=== PATIENT | male | born 1940 | race Caucasian/White ===

== ENCOUNTER 2017-06-04 19:27 | Emergency (ER) | payer OTHER ==
[~2017-06-04] VITALS: Ht 182.9 cm; Wt 71.6 kg
[~2017-06-04 19:27] MED LIST: ASPI81TA11 PO; ATOR1TAB18 PO; BRIL90TA PO; CENTTAB PO; CHOL1CHW5 CHEW; CIPR-9 PO; CLAR10CA3 PO; FIBE500T PO; FISH120014 PO; FOLI400T PO; GARL500C2 PO; ISOS30TA3 PO; METO25TA3 PO; NIAC500T18 PO; OMEP20TA PO; SYMB160A INH; TAMS5CAP PO; VENTAER INH
[2017-06-04 19:34] VITALS: BP 120/71; PULSE 76; RESP 18; TEMP 99.6; O2SAT 96
--- NOTE | 2017-06-04 19:54 | PD ---
HPI Chief Complaint: Fever Time Seen by Provider: 19:39 Travel History International Travel<30 days: No Contact w/Intl Traveler<30days: No Traveled to known affect area: No History of Present Illness HPI Patient is a pleasant 77 -year-old male with history of CAD, htn, hyperlipidemia , GERD, presents to emergency room with complaints of fever. Patient reports that he had a low grade temperature of 99 degrees this morning, reports that he had 3 bouts of diarrhea today. Reports that around 3:30pm, he developed a temperature of 101 degrees. patient reports that he did take Tylenol that time. Patient reports that he has been feeling well since then. Patient denies any cough or congestion, patient denies any chest pain or shortness of breath. Patient denies any abdominal pain, denies any dysuria, urinary urgency or frequency. Patient did report having back pain earlier today, he has complete resolution of symptoms at this time. Patient reports that he came to the emergency room as his doctor told him that if he ever develops a fever, he would need to go to the emergency room for evaluation. Patient with absolutely no complaints at this time. PFSH Past Medical History Hx Anticoagulant Therapy: Yes Anxiety: No Depression: No Cardiovascular Problems: Yes High Cholesterol: Yes Coronary Artery Disease: Yes Diminished Hearing: No GERD: Yes Hypertension: Yes Psychiatric: No Respiratory: Yes Immunizations Current: Yes Past Surgical History Abdominal Surgery: Yes (hernia) Cardiac Surgery: Yes (cabg x 4 1980s) Coronary Artery Bypass Graft: Yes (1986) Coronary Stent: Yes (X 1 08/2016) Social History Alcohol Use: Yes (occ) Tobacco Use: No (FORMER) Substance Use: No Allergies-Medications (Allergen,Severity, Reaction): Coded Allergies: No Known Allergies (Verified , 06/04/17) Reported Meds & Prescriptions Reported Meds & Active Scripts Active Flomax (Tamsulosin HCl) 0.4 Mg Cap 0.4 Mg PO DAILY Brilinta (Ticagrelor) 90 Mg Tab 90 Mg PO BID Metoprolol Tartrate 25 Mg Tab 25 Mg PO Q12HR Isosorbide Mononitrate ER (Isosorbide Mononitrate) 30 Mg Leon 30 Mg PO DAILY@07 Reported Ventolin Hfa 18 GM Inh (Albuterol Sulfate) 90 Mcg/Act Aer 1 Puff INH Q4H PRN Centrum Silver (Multiple Vitamins W/ Minerals) 1 Tab 1 Tab PO DAILY Fish Oil ([place]-3 Fatty Acids) 1,200 Mg Cap 1 Tab PO DAILY Garlic Oil 500 (Garlic) 500 Mg Cap 2 Tab PO DAILY Vitamin D3 (Cholecalciferol) 2,000 Unit Chew 2,000 Units CHEW DAILY Folic Acid 400 Mcg Tab 400 Mcg PO DAILY Fiber Therapy (Methylcellulose) 500 Mg Tab 2 Tab PO DAILY PRN Omeprazole 20 Mg Tab 20 Mg PO DAILY Atorvastatin (Atorvastatin Calcium) 80 Mg Tab 80 Mg PO HS Claritin (Loratadine) 10 Mg Cap 10 Mg PO DAILY Niacin (Niacinamide) 500 Mg Tab 1 Tab PO HS Aspirin EC (Aspirin) 81 Mg Tabdr 81 Mg PO DAILY Review of Systems General / Constitutional: Positive: Fever, No: Chills Eyes: No: Visual changes HENT: No: Headaches Cardiovascular: No: Chest Pain or Discomfort, Palpitations, Irregular Rhythm, Tachycardia Respiratory: No: Cough, Shortness of Breath, Wheezing Gastrointestinal: No: Nausea, Vomiting, Diarrhea, Abdominal Pain Genitourinary: No: Dysuria Musculoskeletal: No: Pain Skin: No Rash Neurologic: No: Weakness, Dizziness, Tremor, Headache Psychiatric: No: Depression Endocrine: No: Polydipsia Hematologic/Lymphatic: No: Easy Bruising Physical Exam Narrative GENERAL: NAD, Nontoxic SKIN: Focused skin assessment warm/dry. HEAD: Atraumatic. Normocephalic. EYES: Pupils equal and round. No scleral icterus. No injection or drainage. ENT: No nasal bleeding or discharge. Mucous membranes pink and moist. NECK: Trachea midline. No JVD. CARDIOVASCULAR: Regular rate and rhythm. No murmur appreciated. RESPIRATORY: No accessory muscle use. Clear to auscultation. Breath sounds equal bilaterally. GASTROINTESTINAL: Abdomen soft, non-tender, nondistended. Hepatic and splenic margins not palpable. MUSCULOSKELETAL: No obvious deformities. No clubbing. No cyanosis. No edema. No flank tenderness NEUROLOGICAL: Awake and alert. No obvious cranial nerve deficits. Motor grossly within normal limits. Normal speech. PSYCHIATRIC: Appropriate mood and affect; insight and judgment normal. Data Data Last Documented VS Vital Signs Date Time Temp Pulse Resp B/P (MAP) Pulse Ox O2 Delivery O2 Flow Rate FiO2 06/04/17 19:51 Room Air 06/04/17 19:34 99.6 76 18 120/71 (87) 96 Orders Orders Complete Blood Count With Diff (06/04/17 19:47) Comprehensive Metabolic Panel (06/04/17 19:47) Ecg Monitoring (06/04/17 19:47) Iv Access Insert/Monitor (06/04/17 19:47) Oximetry (06/04/17 19:47) Sodium Chloride 0.9% Flush (Ns Flush) (06/04/17 20:00) Urinalysis - C+S If Indicated (06/04/17 19:47) Sodium Chlor 0.9% 1000 Ml Inj (Ns 1000 M (06/04/17 20:30) Labs Laboratory Tests Test 06/04/17 20:20 06/04/17 20:30 White Blood Count 10.4 TH/MM3 Red Blood Count 3.89 MIL/MM3 Hemoglobin 12.1 GM/DL Hematocrit 35.9 % Mean Corpuscular Volume 92.2 FL Mean Corpuscular Hemoglobin 31.0 PG Mean Corpuscular Hemoglobin Concent 33.7 % Red Cell Distribution Width 14.1 % Platelet Count 226 TH/MM3 Mean Platelet Volume 7.1 FL Neutrophils (%) (Auto) 86.7 % Lymphocytes (%) (Auto) 5.2 % Monocytes (%) (Auto) 6.5 % Eosinophils (%) (Auto) 0.4 % Basophils (%) (Auto) 1.2 % Neutrophils # (Auto) 9.1 TH/MM3 Lymphocytes # (Auto) 0.5 TH/MM3 Monocytes # (Auto) 0.7 TH/MM3 Eosinophils # (Auto) 0.0 TH/MM3 Basophils # (Auto) 0.1 TH/MM3 CBC Comment DIFF FINAL Differential Comment Blood Urea Nitrogen 13 MG/DL Creatinine 0.99 MG/DL Random Glucose 101 MG/DL Total Protein 7.4 GM/DL Albumin 3.7 GM/DL Calcium Level 8.9 MG/DL Alkaline Phosphatase 65 U/L Aspartate Amino Transf (AST/SGOT) 26 U/L Alanine Aminotransferase (ALT/SGPT) 27 U/L Total Bilirubin 0.7 MG/DL Sodium Level 136 MEQ/L Potassium Level 3.9 MEQ/L Chloride Level 103 MEQ/L Carbon Dioxide Level 26.0 MEQ/L Anion Gap 7 MEQ/L Estimat Glomerular Filtration Rate 73 ML/MIN Urine Color YELLOW Urine Turbidity CLEAR Urine pH 5.5 Urine Specific [place] 1.031 Urine Protein TRACE mg/dL Urine Glucose (UA) NEG mg/dL Urine Ketones TRACE mg/dL Urine Occult Blood MOD Urine Nitrite NEG Urine Bilirubin NEG Urine Leukocyte Esterase NEG Urine RBC 4-9 /hpf Urine WBC 0-2 /hpf Urine Squamous Epithelial Cells 0-5 /hpf Microscopic Urinalysis Comment CULT NOT INDICATED MDM Medical Decision Making Medical Screen Exam Complete: Yes Emergency Medical Condition: Yes Medical Record Reviewed: Yes Interpretation(s) Vital Signs Date Time Temp Pulse Resp B/P (MAP) Pulse Ox O2 Delivery O2 Flow Rate FiO2 06/04/17 19:34 99.6 76 18 120/71 (87) 96 Differential Diagnosis Differential includes viral infection, UTI, electrolyte abnormality Narrative Course Patient is a 77-year-old male who presents to emergency room for evaluation of fever. Reports that he had one episode of fever around 3:30 PM this afternoon, reports that he did take Tylenol and has resolution of symptoms. Patient reports that he has no cough or congestion, no chest pain or shortness of breath. Patient with no abdominal pain, nausea or vomiting. Patient denies any complaints at this time. Reports that he came to the emergency room for evaluation as he was told to come to the emergency room if he ever developed a fever by his doctor. Vital Signs Date Time Temp Pulse Resp B/P (MAP) Pulse Ox O2 Delivery O2 Flow Rate FiO2 06/04/17 19:34 99.6 76 18 120/71 (87) 96 Patient's vital signs are stable this time, patient is afebrile with a temperature of 99.6. Patient with no complaints at this time, will obtain x- ray of chest, will obtain basic blood work, and will monitor patient CBC & BMP Diagram 06/04/17 20:20 Total Protein 7.4, Albumin 3.7, Calcium Level 8.9, Alkaline Phosphatase 65, Aspartate Amino Transf (AST/SGOT) 26, Alanine Aminotransferase (ALT/SGPT) 27, Total Bilirubin 0.7 UA: trace ketones, mod blood, neg leuk esterase, negative nitrites, 0-2 white blood cells Patient asymptomatic while in the emergency room, patient with absolutely no complaints. Patient with fever of unknown etiology while at home. Instructed patient to follow up with his primary care doctor in 48-72 hours. If he has return of symptoms, he is return to emergency room. Signs and symptoms of when to return to the emergency room was reviewed with patient in detail. Diagnosis Primary Impression: Fever Qualified Codes: R50.9 - Fever, unspecified Additional Impression: Anemia Qualified Codes: D64.9 - Anemia, unspecified Patient Instructions: General Instructions Additional Instructions: Please follow up with your primary care doctor in 48-72 hours Return to ER if symptoms return Return to ER as needed Disposition: 01 DISCHARGE HOME Condition: Stable Domitila Carpenter DO Jun 04, 2017 19:54
[2017-06-04] MEDS ORDERED: SODIUM CHLORIDE 0.9% FLUSH 10 ML FLUSH IVF PRN (20:00)
[2017-06-04 20:26] LABS: AUTOMATED NEUTROPHIL # 9.1 TH/MM3 (1.8-7.7); BASOPHIL # 0.1 TH/MM3 (0-0.2); BASOPHIL % 1.2 % (0.0-2.0); EOSINOPHIL % 0.4 % (0.0-4.0); HEMATOCRIT 35.9 % (39.0-51.0); LYMPH % 5.2 % (9.0-44.0); LYMPHOCYTE # 0.5 TH/MM3 (1.0-4.8); MEAN CELL VOLUME 92.2 FL (80.0-100.0); MEAN CORPUSCULAR HGB CONC 33.7 % (32.0-36.0); MONO % 6.5 % (0.0-8.0); NEUT % 86.7 % (16.0-70.0); PLATELET COUNT 226 TH/MM3 (150-450); RED BLOOD COUNT 3.89 MIL/MM3 (4.50-5.90); RED CELL DISTRIBUTION WIDTH 14.1 % (11.6-17.2); WHITE BLOOD COUNT 10.4 TH/MM3 (4.0-11.0)
[2017-06-04 20:27] LABS: HEMO FLAGS DIFF FINAL
[2017-06-04] MEDS ORDERED: SODIUM CHLOR 0.9% 1000 ML INJ 1,000 ML IV ONE (20:30)
[2017-06-04 20:32] LABS: CHLORIDE 103 MEQ/L (98-107); POTASSIUM 3.9 MEQ/L (3.5-5.1); SODIUM (NA) 136 MEQ/L (136-145)
[2017-06-04 20:36] LABS: ANION GAP 7 MEQ/L (5-15); BLOOD UREA NITROGEN 13 MG/DL (7-18)
[2017-06-04 20:39] LABS: ALT (GPT) 27 U/L (12-78); AST (GOT) 26 U/L (15-37); GLOMERULAR FILTRATION RATE 73 ML/MIN (>89)
[2017-06-04 20:41] LABS: TOTAL BILIRUBIN ADULT 0.7 MG/DL (0.2-1.0)
[2017-06-04 20:42] LABS: ALKALINE PHOSPHATASE 65 U/L (45-117)
[2017-06-04 20:43] LABS: BLOOD, URINE MOD (NEG); GLUCOSE,URINE NEG (NEG); KETONE, URINE TRACE mg/dL (NEG); NITRITE,URINE NEG (NEG); PH, URINE 5.5 (5.0-8.5)
[2017-06-04 20:48] LABS: URINE COLOR YELLOW (YELLW/STRAW)
[2017-06-04 20:49] LABS: COMMENT (UR) CULT NOT INDICATED; CULTURE IF INDICATED CULT NOT INDICATED; SQUAMOUS EPITHELIAL CELL URINE 0-5 /hpf (0-5); WBC, URINE 0-2 /hpf (0-5)
[2017-06-04 21:14] VITALS: BP 118/70; TEMP 99.8
== END 2017-06-04 21:24 | disposition home or self-care (01) ==
LOC: PHED 19:27
DX: R50.9 Fever, unspecified (principal); D64.9 Anemia, unspecified; E78.00 Pure hypercholesterolemia, unspecified; I10 Essential (primary) hypertension; I25.10 Atherosclerotic heart disease of native coronary artery without angina pectoris
CPT/HCPCS: 80053; 81001; 85025; 99283